=== PATIENT | male | born 1990 | race Caucasian/White ===

== ENCOUNTER 2020-12-28 06:00 | Inpatient (IN) | payer OTHER ==
[~2020-12-28] VITALS: Ht 177.8 cm; Wt 92.5 kg
[~2020-12-28 06:00] MED LIST: LORATADINE10 MG PO; PROMETHAZINE-D473 M1 PO
[2020-12-28 06:58] LABS: HEMOGLOBIN 16.3 gm/dl (14.0-17.5); RED BLOOD COUNT 5.36 M/UL (4.20-5.50); WHITE BLOOD COUNT 7.9 K/UL (4.5-11.0)
--- NOTE | 2020-12-28 14:19 | NUR ---
notified dr. jackson of critical lactic acid results of 20.1.
[2020-12-29 03:22] LABS: WHITE BLOOD COUNT 9.1 K/UL (4.5-11.0)
[2020-12-29 03:27] LABS: HEMOGLOBIN 14.2 gm/dl (14.0-17.5); RED BLOOD COUNT 4.65 M/UL (4.20-5.50)
[2020-12-29 03:50] LABS: BUN/CREATININE RATIO 13 (0-10)
[2020-12-30 04:38] LABS: HEMOGLOBIN 14.5 gm/dl (14.0-17.5); RED BLOOD COUNT 4.82 M/UL (4.20-5.50)
[2020-12-30 04:39] LABS: WHITE BLOOD COUNT 16.8 K/UL (4.5-11.0)
[2020-12-30 04:57] LABS: BUN/CREATININE RATIO 14 (0-10)
[2020-12-31 06:09] LABS: HEMOGLOBIN 14.5 gm/dl (14.0-17.5); RED BLOOD COUNT 4.78 M/UL (4.20-5.50)
[2020-12-31 06:37] LABS: BUN/CREATININE RATIO 14 (0-10)
[2021-01-01 04:40] LABS: BUN/CREATININE RATIO 15 (0-10)
[2021-01-01] MEDS ORDERED: LEVOFLOXACIN750 MG PO (10:40)
[2021-01-01] MEDS ORDERED: PROTONIX 40 MG40 M1 PO (10:40)
[2021-01-01] MEDS ORDERED: DECADRON6 MG PO (10:40)
== END 2021-01-01 10:33 | disposition home or self-care (01) | DRG 871 ==
LOC: ER1 06:00 → CDU 09:45 → MED SURG 4 09:45
PROVIDERS: Emergency Medicine; Internal Medicine; ADMIT Internal Medicine
PROC: XW033E5 Introduction of Remdesivir Anti-infective into Peripheral Vein, Percutaneous Approach, New Technology Group 5 (ICD-10-PCS; principal; 2020-12-29)
PROC: 8E0ZXY6 Isolation (ICD-10-PCS; 2020-12-29)
DX: A41.89 Other specified sepsis (principal); U07.1 COVID-19; J96.01 Acute respiratory failure with hypoxia; J12.82 Pneumonia due to coronavirus disease 2019; J15.9 Unspecified bacterial pneumonia; N17.9 Acute kidney failure, unspecified; E87.2 Acidosis; A08.39 Other viral enteritis; R65.20 Severe sepsis without septic shock; E86.0 Dehydration
CPT/HCPCS: 36415; 36600; 71045; 71275; 80053; 82550; 82553; 82728; 82803; 83605; 83615; 83735; 84484; 85025; 85027; 85379; 86140; 87040; 93005; 94640; 94664; 94760; 99284; C9113; J0456; J1100; J1650; J1956; J7030; Q9967

== ENCOUNTER → 2021-11-14 | Outpatient (CLI) | payer OTHER ==
[~2021-11-14] MED LIST changes: +DECADRON6 MG PO; +LEVOFLOXACIN750 MG PO; +PROTONIX 40 MG40 M1 PO
== END ==
LOC: KOH-I 12:11
DX: M25.511 Pain in right shoulder (principal); M25.512 Pain in left shoulder
CPT/HCPCS: 73030